=== PATIENT | female | born 1980 | race Caucasian/White ===

== ENCOUNTER 2017-12-07 21:16 | Day surgery (SDC) | payer SELFPAY ==
[2017-12-07] MEDS: MORPHINE 4 MG/ML 1ML VIAL/SYRINGE (J2270) IV (21:45)
[2017-12-07] MEDS: NS 1,000 ML IV (21:45)
[2017-12-07] MEDS: ONDANSETRON 4MG/2ML VIAL (J2405) IV (21:45)
[2017-12-07 22:03] LABS: BASO % 0.3 % (0.0-1.0); EOS # 0.1 10^3/uL (0.0-0.50); EOS % 0.6 % (0.0-3.0); IMMATURE GRANULOCYTE % 0.4 % (0-3.0); LYMPH # 2.4 10^3/uL (1.5-4.5); LYMPH % 19.7 % (24.0-44.0); MEAN CORPUSCULAR HEMOGLOBIN 27.2 pg (27.0-33.0); MEAN CORPUSCULAR HGB CONC 33.3 g/dl (32.0-36.5); MEAN CORPUSCULAR VOLUME 81.6 fl (80.0-96.0); MONO # 0.7 10^3/uL (0.0-0.8); MONO % 5.5 % (0.0-5.0); NEUTROPHILS % 73.5 % (36.0-66.0); PLATELET COUNT, AUTOMATED 252 10^3/uL (150-450); RED BLOOD COUNT 4.41 10^6/uL (4.00-5.40); RED CELL DISTRIBUTION WIDTH 14.6 % (11.5-14.5); WHITE BLOOD COUNT 12.3 10^3/uL (4.0-10.0)
[2017-12-07 22:20] LABS: INR 1.06
[2017-12-07 22:21] LABS: ALBUMIN 3.9 GM/DL (3.2-5.2); ALBUMIN/GLOBULIN RATIO 0.83 (1.00-1.93); ALKALINE PHOSPHATASE 74 U/L (45-117); ALT/SGPT 26 U/L (12-78); AMYLASE 48 U/L (25-115); ANION GAP 13 MEQ/L (8-16); AST/SGOT 16 U/L (7-37); BILIRUBIN,DIRECT < 0.1 MG/DL (0.0-0.2); BILIRUBIN,TOTAL 0.5 MG/DL (0.2-1.0); BLOOD UREA NITROGEN 15 MG/DL (7-18); CALCIUM LEVEL 9.1 MG/DL (8.5-10.1); CARBON DIOXIDE LEVEL 19 MEQ/L (21-32); CHLORIDE LEVEL 107 MEQ/L (98-107); CK-MB VALUE MASS < 1.0 NG/ML (<3.6); CPK CREATINE PHOSPHOKINASE 76 U/L (26-192); CREATININE FOR GFR 0.94 MG/DL (0.55-1.30); GLOMERULAR FILTRATION RATE > 60.0 (>60); GLUCOSE, FASTING 113 MG/DL (70-100); LIPASE 197 U/L (73-393); MB/CK RELATIVE INDEX 1.31 (< OR =4); POTASSIUM SERUM 3.5 MEQ/L (3.5-5.1); SODIUM LEVEL 139 MEQ/L (136-145); TOTAL PROTEIN 8.6 GM/DL (6.4-8.2); TROPONIN I < 0.02 NG/ML (< 0.10)
[2017-12-07 22:22] LABS: LACTIC ACID SEPSIS PROTOCOL 2.2 MMOL/L (0.4-2.0)
[2017-12-07] MEDS: HYDROmorphone HCL 1 MG/ML SYRINGE (J1170) IV (22:30)
[2017-12-07] MEDS: diphenhydrAMINE INJ 50MG/ML VIAL (J1200) IV (22:58)
[2017-12-07] MEDS: FAMOTIDINE IV BAG 20 MG in APPROPRIATE DILUENT 1 EA IV (23:00)
[2017-12-07] MEDS: methylPREDNISolone INJ 125 MG/2 ML VIAL (J2930) IV (23:00)
[2017-12-07] MEDS ORDERED: ISOVUE-370 76% 100ML VIAL (Q9967) As Ordered (23:24)
[2017-12-08] MEDS: MORPHINE 4 MG/ML 1ML VIAL/SYRINGE (J2270) IV (01:44)
[2017-12-08] MEDS: AMPICILLIN SOD/SULBACTAM SOD 3 GM in D5W MINI-BAG PLUS 100 ML IV ×4 (01:45→20:50)
[2017-12-08] MEDS ORDERED: UNASYN 3 GM VIAL As Ordered (01:48)
[2017-12-08] MEDS ORDERED: PROPOFOL 200 MG/20 ML VIAL As Ordered ×2 (01:52→03:23)
[2017-12-08] MEDS ORDERED: LIDOCAINE 2% INJ 100 MG/5 ML SDV (FOR ANES.) As Ordered (01:52)
[2017-12-08] MEDS ORDERED: ROCURONIUM BROMIDE 50 MG/5 ML VIAL As Ordered (01:53)
[2017-12-08] MEDS ORDERED: fentaNYL 100 MCG/2 ML INJECTION (J3010) As Ordered ×2 (01:54→04:06)
[2017-12-08] MEDS ORDERED: MIDAZOLAM INJ 2 MG/2 ML VIAL (J2250) As Ordered (01:54)
[2017-12-08] MEDS: BUPIVACAINE HCL 0.25% 30 ML VIAL As Ordered (01:55)
[2017-12-08 02:24] LABS: CONTROL LINE HCG INT CTR LINE PRESENT; HCG, SERUM QUALITATIVE NEGATIVE (NEGATIVE)
[2017-12-08] MEDS ORDERED: NEOSTIGMINE 10 MG/10 ML VIAL (J2710) As Ordered (02:50)
[2017-12-08] MEDS ORDERED: GLYCOPYRROLATE INJ 0.2 MG/ML 2 ML VIAL As Ordered ×2 (02:51)
[2017-12-08] MEDS ORDERED: ONDANSETRON 4MG/2ML VIAL (J2405) As Ordered (02:51)
[2017-12-08] MEDS ORDERED: METOCLOPRAMIDE INJ 10MG/2ML VIAL (J2765) As Ordered (02:51)
[2017-12-08] MEDS: BUPIVACAINE/EPIN 0.5% 30 ML VIAL As Ordered (03:26)
[2017-12-08] MEDS ORDERED: ONDANSETRON 4MG/2ML VIAL (J2405) IV ×2 (03:45)
[2017-12-08] MEDS ORDERED: METOCLOPRAMIDE INJ 10MG/2ML VIAL (J2765) IV ×2 (03:45)
[2017-12-08] MEDS ORDERED: MORPHINE 4 MG/ML 1ML VIAL/SYRINGE (J2270) IV ×2 (03:45)
[2017-12-08] MEDS: LR 1,000 ML IV (03:45)
[2017-12-08] MEDS ORDERED: HYDROmorphone HCL 1 MG/ML SYRINGE (J1170) IV (03:45)
[2017-12-08] MEDS ORDERED: PROMETHAZINE INJ 25 MG/ML VIAL (J2550) IV (03:45)
[2017-12-08] MEDS ORDERED: PERCOCET 5MG/325MG TAB As Ordered (04:00)
[2017-12-08] MEDS: PERCOCET 5MG/325MG TAB PO ×2 (04:06→04:33)
[2017-12-08] MEDS: fentaNYL 100 MCG/2 ML INJECTION (J3010) IV (04:08)
[2017-12-08] MEDS: NS 1,000 ML IV (05:15)
[2017-12-08] MEDS: ALBUTEROL SULFATE 2.5 MG/0.5 ML INH NEB SOLN INH ×4 (07:20→20:00)
[2017-12-08] MEDS: NORCO, ANEXSIA 5/325MG TABLET (HYDROcodone/ACETAMINOPHEN) PO ×4 (08:23→21:00)
[2017-12-08] MEDS: PANTOPRAZOLE 40MG INJ (PROTONIX) (C9113) IV ×2 (09:01→22:02)
[2017-12-09] MEDS: AMPICILLIN SOD/SULBACTAM SOD 3 GM in D5W MINI-BAG PLUS 100 ML IV ×2 (02:04→09:23)
[2017-12-09] MEDS: NORCO, ANEXSIA 5/325MG TABLET (HYDROcodone/ACETAMINOPHEN) PO ×3 (02:05→10:55)
[2017-12-09] MEDS: ALBUTEROL SULFATE 2.5 MG/0.5 ML INH NEB SOLN INH (07:35)
[2017-12-09] MEDS: PANTOPRAZOLE 40MG INJ (PROTONIX) (C9113) IV (09:22)
== END 2017-12-09 11:02 | disposition home or self-care (01) ==
LOC: M SDC 12-09 11:02 → M ED 21:16 → M PED 12-08 04:45
DX: K35.80 Unspecified acute appendicitis (principal); J45.909 Unspecified asthma, uncomplicated; I10 Essential (primary) hypertension; I80.9 Phlebitis and thrombophlebitis of unspecified site
CPT/HCPCS: 44970

== ENCOUNTER → 2018-11-28 | Outpatient (REF) | payer BC ==
[~2018-11-28] MED LIST: /AUGM875TA; ADVAIR; ALBUTEROL SULFATE; AUGM500T34 PO; CEFT500T; HYDR-3715 PO; IRONTAB3; MULTLIQ7; NASONEX; PRED10TA2; PREDPOW10; PRENTAB74 PO; PROV90AE; SING10TA31; TESS100C; XOPE1.252; XYZASOL2; [UNRECOGNIZED DRUG - OTHER]
[2018-11-30 14:11] LABS: HPV HYBRID CAPTURE II Negative (Negative)
== END ==
LOC: M LAB REF 17:25
PROVIDERS: ATTEND Advanced Practice Midwife
DX: Z12.4 Encounter for screening for malignant neoplasm of cervix (principal); Z11.51 Encounter for screening for human papillomavirus (HPV)
CPT/HCPCS: 87255; 87624; G0123

== ENCOUNTER → 2018-12-19 | Outpatient (CLI) | payer BC ==
[2018-12-19 10:05] LABS: HEMATOCRIT 36.8 % (36.0-47.0); HEMOGLOBIN 11.3 g/dl (12.0-15.5); MEAN CORPUSCULAR HEMOGLOBIN 25.5 pg (27.0-33.0); MEAN CORPUSCULAR HGB CONC 30.7 g/dl (32.0-36.5); MEAN CORPUSCULAR VOLUME 83.1 fl (80.0-96.0); PLATELET COUNT, AUTOMATED 220 10^3/uL (150-450); RED BLOOD COUNT 4.43 10^6/uL (4.00-5.40); WHITE BLOOD COUNT 5.4 10^3/uL (4.0-10.0)
[2018-12-19 10:19] LABS: FREE T4 1.3 NG/DL (0.76-1.46); THYROID STIMULATING HORMONE 1.7 uIU/ML (0.358-3.740)
[2018-12-23 08:06] LABS: DEHYDROEPIANDROSTERONE UNCONJ 176 ng/dL (31-701); INSULIN LEVEL 8.8 uIU/mL (2.6-24.9); TESTOSTERONE FREE (DIRECT) 0.8 pg/mL (0.0-4.2)
== END ==
LOC: M SMT 08:05
PROVIDERS: ATTEND Advanced Practice Midwife
DX: N92.6 Irregular menstruation, unspecified (principal)

== ENCOUNTER → 2018-12-19 | Outpatient (CLI) | payer BC ==
--- NOTE | 2018-12-20 04:04 | REP ---
Clinical: Abnormal menstrual cycles . Technique: Transabdominal pelvic ultrasound followed by transvaginal examination for better evaluation of the endometrium and adnexa with color Doppler evaluation of the ovaries. Findings: Bladder is unremarkable and measures 14.3 x 9.2 x 9.4 cm . Anteverted heterogeneous uterus measures 10.3 x 5.3 x 6.9 cm . The endometrial complex measures 13.4 mm thickness and includes 1.5 x 1.1 x 1.1 cm posterior hypoechoic lesion which may represent polyp/mass versus submucosal fibroid. Right ovary measures 4.1 x 4.3 x 3.5 cm with 3.1 x 2.6 x 2.7 cm complex cyst ; Left ovary measures 3.7 x 2.3 x 2.6 cm including 2 cm dominant follicle. The vascularity to the bilateral ovaries appears normal and without torsion. Right RI 0.52. Left RI 0.55 . Impression: 1. Heterogeneous enlarged uterus with possible posterior submucosal fibroid versus endometrial polyp/mass. Consider follow-up examination. 2. Complex right ovarian cyst likely hemorrhagic. Consider follow-up examination in 4-6 weeks to evaluate for resolution. Electronically Signed by Gerardo Stack MD 12/20/2018 03:55 A
== END ==
LOC: M RAD 13:33
PROVIDERS: ATTEND Advanced Practice Midwife
DX: N85.2 Hypertrophy of uterus (principal); N83.291 Other ovarian cyst, right side; N92.6 Irregular menstruation, unspecified

== ENCOUNTER 2019-03-22 08:54 | Day surgery (SDC) | payer BC ==
[~2019-03-22] VITALS: Ht 162.6 cm; Wt 89.4 kg
[~2019-03-22 08:54] MED LIST changes: +ALLE180T33 PO; +BENA25CA4 PO; +KETOROLAC 60 MG/2 ML VIAL (J1885) As Ordered ONE; +LIDOCAINE 2% INJ 100 MG/5 ML SDV (FOR ANES.) As Ordered ONE; +LR 1,000 ML IV ONE; +MIDAZOLAM INJ 2 MG/2 ML VIAL (J2250) As Ordered ONE; +ONDANSETRON 4MG/2ML VIAL (J2405) As Ordered ONE; +PROPOFOL 200 MG/20 ML VIAL As Ordered ONE; +dexameTHASONE 4 MG/ML 1ML VIAL (J1100) As Ordered ONE; +fentaNYL 100 MCG/2 ML INJECTION (J3010) As Ordered ONE
[2019-03-22 09:19] LABS: HEMOGLOBIN 11.6 g/dl (12.0-15.5); MEAN CORPUSCULAR HEMOGLOBIN 26.5 pg (27.0-33.0); MEAN CORPUSCULAR HGB CONC 31.4 g/dl (32.0-36.5); MEAN CORPUSCULAR VOLUME 84.7 fl (80.0-96.0); PLATELET COUNT, AUTOMATED 252 10^3/uL (150-450); RED BLOOD COUNT 4.37 10^6/uL (4.00-5.40); WHITE BLOOD COUNT 6.6 10^3/uL (4.0-10.0)
[2019-03-22 09:28] LABS: URINE PREG TEST NEGATIVE (NEGATIVE)
[2019-03-22] MEDS ORDERED: oxyCODONE 5MG TAB As Ordered ONE (10:43)
[2019-03-22] MEDS ORDERED: HYDROMORPHONE HCL 0.5 MG/ 0.5 ML SYRINGE (J1170 PER 1) IV PRN (11:00)
[2019-03-22] MEDS ORDERED: LR 1,000 ML IV SCH (11:00)
[2019-03-22] MEDS ORDERED: fentaNYL 100 MCG/2 ML INJECTION (J3010) IV PRN (11:00)
[2019-03-22] MEDS ORDERED: oxyCODONE 5MG TAB PO PRN (11:00)
[2019-03-22] MEDS ORDERED: PERCOCET 5MG/325MG TAB PO PRN (11:00)
--- NOTE | 2019-03-22 11:43 | RO ---
DATE OF PROCEDURE: 03/22/2019 PREOPERATIVE DIAGNOSES: 1. Abnormal uterine bleeding. 2. Endometrial polyp. POSTOPERATIVE DIAGNOSES: 1. Abnormal uterine bleeding. 2. Endometrial polyp. PROCEDURE PERFORMED: Hysteroscopy, dilation and curettage with MyoSure. SURGEON: Alison Zepeda MD .NET PROGRAMMER: None. ANESTHESIA: General: ESTIMATED BLOOD LOSS: 5ml IV FLUIDS: 1 liter lactated Ringer's solution. URINE OUTPUT: Not obtained. PREOPERATIVE ANTIBIOTICS: None. OPERATIVE FINDINGS: Patient with thickened endometrium approximately a centimeter thickened portion of the posterior endometrium consistent with endometrial polyp bilateral ostia were visualized. DESCRIPTION OF PROCEDURE: After informed consent was obtained written consent was reviewed, the patient brought to operating room where she was placed under general anesthesia. She was then placed in lithotomy position and was prepped and draped in normal sterile fashion. Time-out in the operating room was then performed identifying the patient, procedure be performed as well as drug allergies. [place] speculum was placed revealing the cervix. Anterior lip of the cervix grasped with a single-tooth tenaculum. The uterus then sounded to 9 cm. The cervix then sequentially dilated using Hanks dilators. Hysteroscope was then advanced through the cervical os and endometrial cavity was observed with the above-noted findings. MyoSure device was then placed in the hysteroscope and endometrial polyp was morcellated. Hysteroscope was then removed as well as the MyoSure. Sharp curette was then advanced through the cervical os to the level of the fundus and the uterus curetted in a 260 degree fashion. Tissue was obtained and this was sent to pathology for evaluation. The single-tooth tenaculum was then removed. Tenaculum sites were noted be hemostatic. The speculum was then removed. The patient was then taken out of lithotomy position, was awakened from general anesthesia and taken recovery in stable condition. [facility]ITALFab[facility]
[2019-03-22 13:10] VITALS: BP 137/63
== END 2019-03-22 13:17 | disposition home or self-care (01) ==
LOC: M SDC 08:54
PROVIDERS: ATTEND Obstetrics & Gynecology
DX: N84.0 Polyp of corpus uteri (principal); Z79.899 Other long term (current) drug therapy; Z88.1 Allergy status to other antibiotic agents; Z88.2 Allergy status to sulfonamides; Z91.041 Radiographic dye allergy status
CPT/HCPCS: 36415; 58558; 84703; 85027; 86850; 86900; 86901; 88304; 88305; J1100; J1885; J2250; J2405; J3010

== ENCOUNTER 2019-04-03 17:22 | Emergency (ER) | payer BC ==
[~2019-04-03] VITALS: Ht 162.6 cm; Wt 90.9 kg
[~2019-04-03 17:22] MED LIST changes: -KETOROLAC 60 MG/2 ML VIAL (J1885) As Ordered ONE; -LIDOCAINE 2% INJ 100 MG/5 ML SDV (FOR ANES.) As Ordered ONE; -LR 1,000 ML IV ONE; -MIDAZOLAM INJ 2 MG/2 ML VIAL (J2250) As Ordered ONE; -ONDANSETRON 4MG/2ML VIAL (J2405) As Ordered ONE; -PROPOFOL 200 MG/20 ML VIAL As Ordered ONE; -dexameTHASONE 4 MG/ML 1ML VIAL (J1100) As Ordered ONE; -fentaNYL 100 MCG/2 ML INJECTION (J3010) As Ordered ONE
[2019-04-03 18:56] LABS: BASO # 0.1 10^3/uL (0.0-0.2); BASO % 0.6 % (0.0-1.0); EOS # 0.2 10^3/uL (0.0-0.50); EOS % 1.8 % (0.0-3.0); HEMATOCRIT 36.4 % (36.0-47.0); HEMOGLOBIN 11.4 g/dl (12.0-15.5); LYMPH # 2.4 10^3/uL (1.5-4.5); LYMPH % 26.7 % (24.0-44.0); MEAN CORPUSCULAR HEMOGLOBIN 26.5 pg (27.0-33.0); MEAN CORPUSCULAR HGB CONC 31.3 g/dl (32.0-36.5); MEAN CORPUSCULAR VOLUME 84.5 fl (80.0-96.0); MONO # 0.5 10^3/uL (0.0-0.8); MONO % 5.9 % (0.0-5.0); NEUTROPHILS # 5.8 10^3/uL (1.8-7.7); NEUTROPHILS % 64.7 % (36.0-66.0); PLATELET COUNT, AUTOMATED 257 10^3/uL (150-450); RED BLOOD COUNT 4.31 10^6/uL (4.00-5.40)
[2019-04-03 19:19] LABS: ALBUMIN 3.6 GM/DL (3.2-5.2); ALT/SGPT 26 U/L (12-78); BILIRUBIN,DIRECT < 0.1 MG/DL (0.0-0.2); BILIRUBIN,TOTAL 0.1 MG/DL (0.2-1.0); BLOOD UREA NITROGEN 20 MG/DL (7-18); CALCIUM LEVEL 8.8 MG/DL (8.5-10.1); CARBON DIOXIDE LEVEL 29 MEQ/L (21-32); CHLORIDE LEVEL 105 MEQ/L (98-107); CREATININE FOR GFR 0.83 MG/DL (0.55-1.30); GLOMERULAR FILTRATION RATE > 60.0 (>60); GLUCOSE, FASTING 97 MG/DL (70-100); LIPASE 253 U/L (73-393); POTASSIUM SERUM 3.7 MEQ/L (3.5-5.1); SODIUM LEVEL 141 MEQ/L (136-145); TOTAL PROTEIN 7.1 GM/DL (6.4-8.2)
[2019-04-03] MEDS ORDERED: MORPHINE 4 MG/ML 1ML VIAL/SYRINGE (J2270) IV ONE (21:30)
[2019-04-03] MEDS ORDERED: ONDANSETRON 4MG/2ML VIAL (J2405) IV ONE (21:30)
--- NOTE | 2019-04-03 23:40 | REPVR ---
EXAM: US Pelvis Complete, Transabdominal EXAM DATE/TIME: 04/03/2019 10:34 PM CLINICAL HISTORY: 39 years old, female; Pelvic pain; Prior surgery; Surgery date: 3-7 days post-operative; Surgery type: Hysteroscpopy and polyp removal; Additional info: Left inguinal pain, recent uterine polyp removal TECHNIQUE: Imaging protocol: Real-time transabdominal pelvic ultrasound with image documentation. Complete exam. COMPARISON: US PELVIC NON-OB COMPLETE 12/19/2018 2:12 PM FINDINGS: Uterus/cervix: 12.1 x 5.8 x 6.8 cm. Normal endometrial thickness, measuring approximately 11 mm. Right ovary: 4.1 x 3 x 4 cm. No mass. Normal blood flow. Left ovary: 4.1 x 3.2 x 3.6 cm. 2.2 x 2 x 2 cm dominant follicle. No mass. Normal blood flow. Free fluid: None. Bladder: Normal. IMPRESSION: No acute sonographic findings. Electronically signed by: Saman Moreno On 04/03/2019 23:40:36 PM
--- NOTE | 2019-04-03 23:47 | REPVR ---
EXAM: CT Abdomen and Pelvis Without Contrast EXAM DATE/TIME: 04/03/2019 11:16 PM CLINICAL HISTORY: 39 years old, female; Abdominal pain; Flank; Left; Additional info: Llq pain, left flank pain TECHNIQUE: Imaging protocol: Computed tomography images of the abdomen and pelvis without contrast. Coronal and sagittal reformatted images were created and reviewed. Radiation optimization: All CT scans at this facility use at least one of these dose optimization techniques: automated exposure control; mA and/or kV adjustment per patient size (includes targeted exams where dose is matched to clinical indication); or iterative reconstruction. COMPARISON: CT ABD/PEL W/IV CONTRAST ONLY 12/07/2017 11:26 PM FINDINGS: Mediastinum: Small hiatal hernia. Liver: Unremarkable. Gallbladder and bile ducts: No radiodense gallstones. No biliary ductal dilatation. Pancreas: Unremarkable. Spleen: Unremarkable. Adrenals: Unremarkable. Kidneys and ureters: No mass. No radiodense calculi. No hydronephrosis. Stomach and bowel: Status post gastric sleeve. Moderate amount of retained stool in the colon. No obstruction. No bowel wall thickening. No pneumatosis. Appendix: Findings suggestive of prior appendectomy. Intraperitoneal space: No free fluid. No organized fluid collection. No free air. Vasculature: Unremarkable. No aneurysm. Lymph nodes: No pathologically enlarged lymph nodes. Bladder: Unremarkable. Reproductive: Unremarkable. Bones/joints: No acute osseous abnormality. Mild degenerative changes. Soft tissues: Small, fat-containing umbilical hernia. IMPRESSION: 1. Limited noncontrast examination without CT evidence of acute intra-abdominal or pelvic pathology. 2. Additional findings, as above. Electronically signed by: Saman Moreno On 04/03/2019 23:47:45 PM
[2019-04-04] MEDS ORDERED: MAGNESIUM CITRATE 300 ML BTL PO ONE (00:30)
[2019-04-04 00:35] VITALS: BP 127/75
== END 2019-04-04 00:42 | disposition home or self-care (01) ==
LOC: M ED 17:22
DX: R10.9 Unspecified abdominal pain (principal); K59.00 Constipation, unspecified; J45.909 Unspecified asthma, uncomplicated; Z79.899 Other long term (current) drug therapy; Z91.041 Radiographic dye allergy status; Z88.6 Allergy status to analgesic agent; Z91.89 Other specified personal risk factors, not elsewhere classified; Z88.8 Allergy status to other drugs, medicaments and biological substances; Z88.1 Allergy status to other antibiotic agents
CPT/HCPCS: 36415; 74176; 76856; 80048; 80076; 81001; 83690; 84702; 85025; 93976; 96374; 96375; 99284; J2270; J2405

== ENCOUNTER → 2019-07-24 | Outpatient (REF) | payer BC, OTHER ==
[2019-07-24 19:41] LABS: TOTAL 25(OH) VITAMIN D 18.6 NG/ML (30.0-100.0)
[2019-07-24 19:43] LABS: FOLATE 8.9 NG/ML
== END ==
LOC: M LAB REF 18:30
PROVIDERS: ATTEND Internal Medicine
DX: Z98.84 Bariatric surgery status (principal)

== ENCOUNTER → 2019-11-20 | Outpatient (REF) | payer OTHER ==
[2019-11-20 11:05] LABS: HEMATOCRIT 36.4 % (36.0-47.0); HEMOGLOBIN 11.7 g/dl (12.0-15.5); MEAN CORPUSCULAR HEMOGLOBIN 28.5 pg (27.0-33.0); MEAN CORPUSCULAR HGB CONC 32.1 g/dl (32.0-36.5); MEAN CORPUSCULAR VOLUME 88.6 fl (80.0-96.0); PLATELET COUNT, AUTOMATED 212 10^3/uL (150-450); RED BLOOD COUNT 4.11 10^6/uL (4.00-5.40); WHITE BLOOD COUNT 7.9 10^3/uL (4.0-10.0)
[2019-11-20 11:31] LABS: IRON (FE) 83 UG/DL (50-170)
[2019-11-20 11:41] LABS: TOTAL 25(OH) VITAMIN D 22.2 NG/ML (30.0-100.0)
[2019-11-20 11:42] LABS: VITAMIN B12 LEVEL 427 PG/ML (247-911)
[2019-11-20 11:44] LABS: HEMOGLOBIN A1c 5.2 %
[2019-11-20 11:51] LABS: RUBELLA IgG QUALITATIVE IMMUNE (IMMUNE)
[2019-11-20 11:52] LABS: FOLATE 23.3 NG/ML (>5.4); HEPATITIS B SURFACE ANTIGEN NEGATIVE (NEGATIVE)
[2019-11-20 12:20] LABS: HEPATITIS C VIRUS ABY INDEX 0.1 INDEX (<0.8)
[2019-11-20 12:21] LABS: HIV 1&2 SCREEN CENTAUR NEGATIVE (NEGATIVE)
[2019-11-20 19:10] LABS: CHLAMYDIA DNA AMPLIFICATION NEGATIVE (NEGATIVE); GC DNA AMPLIFICATION NEGATIVE (NEGATIVE)
== END ==
LOC: M PLALAB 08:43
PROVIDERS: ATTEND Advanced Practice Midwife
DX: O09.521 Supervision of elderly multigravida, first trimester (principal); O99.841 Bariatric surgery status complicating pregnancy, first trimester; Z3A.11 11 weeks gestation of pregnancy

== ENCOUNTER → 2020-01-15 | Outpatient (CLI) | payer OTHER ==
--- NOTE | 2020-01-18 08:26 | REP ---
Clinical: Anatomical evaluation. Comparison: None . Findings: Examination demonstrates a single live intrauterine in variable presentation. motion is identified by technologist. Placenta is noted posterior fundal and grade I without evidence for placenta previa or abruption. Amniotic fluid volume is normal. Cervix measures 4.9 cm in length and appears closed. No evidence for nuchal cord. Gestational age by LMP 18 weeks 1 day with YADIRA 06/16/2020 . Gestational age by current measurements 17 weeks 4 days with YADIRA 06/20/2020 . FHR equals 161 beats per minute. BPD 3.7 cm 17 weeks 1 day HC 14.4 cm 17 weeks 4 days AC 12.1 cm 17 weeks 5 days FL 2.5 cm 17 week 4 days HL 2.5 cm 17 weeks 6 days HC/AC ratio 1.19 Estimated weight 202 grams ( 29th percentile). Anatomical assessment demonstrates normal structures including cranium, choroid plexus, cavum, cerebellum/posterior fossa, lungs, diaphragm, stomach, cord insertion/three-vessel cord, kidneys/bladder, spine, and extremities. Impression: Single live intrauterine in variable presentation demonstrating appropriate estimated weight. Limited evaluation of the facial features and heart/ventricular outflow tracts due to positioning and body habitus. Remainder of the anatomical assessment is complete and normal.
== END ==
LOC: M WHC 12:53
PROVIDERS: ATTEND Advanced Practice Midwife
DX: O32.8XX0 Maternal care for other malpresentation of fetus, not applicable or unspecified (principal); Z36.89 Encounter for other specified antenatal screening; Z3A.18 18 weeks gestation of pregnancy

== ENCOUNTER → 2020-02-15 | Outpatient (CLI) | payer OTHER ==
[~2020-02-15] MED LIST changes: +ACET1TAB55 PO; +IRON325T2 PO; +PERCOCET PO; +PRENTAB9 PO; +TUMS500C PO; +VITATAB74 PO; +[UNRECOGNIZED DRUG - OTHER] PO
--- NOTE | 2020-02-16 03:00 | REP ---
REASON: Followup upper lip, four-chamber heart, and ventricular outflow tracts. Multiple ultrasonographic images of the gravid uterus show a single living intrauterine gestation in the maria m breech presentation. Doppler interrogation of the heart shows a heart rate of 135 beats per minute. The placenta is fundal and not low lying. The subjective amniotic fluid volume is within normal limits. The cervix measures 4.3 cm in length and is closed. Evaluation of the maternal adnexal spaces showed no abnormalities. CHART: BPD 5.2 cm = 21 weeks 6 days HC 19.8 cm = 22 weeks 0 days AC 17.6 cm = 22 weeks 4 days FL 3.8 cm = 22 weeks 1 day The estimated weight is 490 grams, which is at the 37th percentile for a 22-week 4-day gestational age. The upper lip, four-chamber heart, and left ventricular outflow tract were well seen today and appear to be within normal limits. The right ventricular outflow tract was still suboptimally seen. IMPRESSION: Single living intrauterine gestation, as described above, with an estimated gestational age of 21 weeks 6 days via composite criteria and an estimated date of delivery of 06/21/2020 by today's exam. No anomalies were detected; however, I recommend a followup examination to confirm a normal right ventricular outflow tract.
== END ==
LOC: M WHC 14:26
PROVIDERS: ATTEND Advanced Practice Midwife
DX: O99.842 Bariatric surgery status complicating pregnancy, second trimester (principal); Z3A.21 21 weeks gestation of pregnancy

== ENCOUNTER → 2020-05-13 | Outpatient (CLI) | payer OTHER ==
[~2020-05-13] MED LIST changes: -ACET1TAB55 PO; -IRON325T2 PO; -PERCOCET PO; -PRENTAB9 PO; -TUMS500C PO; -VITATAB74 PO; -[UNRECOGNIZED DRUG - OTHER] PO
--- NOTE | 2020-05-20 14:32 | REP ---
OB ULTRASOUND HISTORY: Growth. FINDINGS: Real-time sonographic evaluation of gravid uterus performed. There is a single living intrauterine gestation. The estimated gestational age was 35 weeks 1 day, EDC 06/16/2020. Todays measurements indicate appropriate growth. BPD 86 mm equals 34 weeks 5 days, 45th percentile. HC 317 mm, 35 weeks 5 days, 59th percentile. AC 311 mm, 35 weeks 0 days, 49th percentile. Femur length 69 mm, 35 weeks 4 days, 57th percentile. HC to AC ratio 1.02, within normal range, 0.93 to 1.12. Estimated weight 2621 grams, 51st percentile. position is cephalic. Placenta is fundal and grade 2 with no previa or abruption. Umbilical cord inserts into the mid placenta. The heart rate is 143 beats per minute. The amniotic fluid is within normal limits. DEVIN 13.9 is within normal range of 7.9 to 24.9. Cervix was closed and measures 3.0 cm in length. MTDD
== END ==
LOC: M WHC 11:00
PROVIDERS: ATTEND Advanced Practice Midwife
DX: O99.613 Diseases of the digestive system complicating pregnancy, third trimester (principal); K90.9 Intestinal malabsorption, unspecified; Z3A.34 34 weeks gestation of pregnancy

== ENCOUNTER → 2020-05-24 | Outpatient (REF) | payer OTHER | LOC: M SFHCWAGY 13:02 | PROVIDERS: ATTEND Advanced Practice Midwife | DX: O34.219 Maternal care for unspecified type scar from previous cesarean delivery (principal) ==

== ENCOUNTER 2020-06-02 03:10 | Outpatient (CLI) | payer OTHER ==
[~2020-06-02] VITALS: Ht 162.6 cm; Wt 104.8 kg
--- NOTE | 2020-06-02 09:36 | IPNPDOC ---
Obstetrical Progress Note Date of Service Jun 02, 2020 Subjective Pt presents for term labor check. No LOF/VB. +FM. PN course complicated by: h/o gastric sleeve AMA Assessment Heart Rate Tracing: Category I (Reactive.) Tocometer Frequency: irregular Strength: palpated as mild Sterile Vaginal Examination Dilation: 1cm Effacement (%): 50% Station: -3 ((unchanged after several hours of monitoring)) Cervical Consistency: Firm Cervical Position: Posterior Postion/Presentation: Cephalic presentation Assessment and Plan Age: 40 : 3 Term: 2 Pre-term: 0 Abortions: 0 Livin Weeks & Days 38+0 Status: Reassuring (No evidence of active labor or ROM. Reassuring maternal and status. Labor / Third TM precautions reviewed. F/u as scheduled.) SYDNEY DIOR DO Jun 02, 2020 09:36
== END 2020-06-02 09:38 | disposition home or self-care (01) ==
LOC: M LDO 03:10
PROVIDERS: ATTEND Obstetrics & Gynecology
DX: O26.893 Other specified pregnancy related conditions, third trimester (principal); Z3A.38 38 weeks gestation of pregnancy

== ENCOUNTER 2020-06-15 07:40 | Inpatient (IN) | payer OTHER ==
[2020-06-15] VITALS (32 sets, daily range): BP systolic 108–205; BP diastolic 56–131
[~2020-06-15] VITALS: Ht 162.6 cm; Wt 103.9 kg
[2020-06-15] MEDS ORDERED: ACET1TAB55 PO (08:08)
[2020-06-15] MEDS ORDERED: PRENTAB9 PO (08:08)
[2020-06-15] MEDS ORDERED: IRON325T2 PO (08:11)
[2020-06-15] MEDS ORDERED: TUMS500C PO (08:11)
[2020-06-15] MEDS ORDERED: [UNRECOGNIZED DRUG - OTHER] PO (08:11)
[2020-06-15] MEDS ORDERED: VITATAB74 PO (08:11)
[2020-06-15] MEDS ORDERED: OXYTOCIN DRIP 30 UNITS in IV 1 EA IV SCH ×2 (10:15→17:00)
[2020-06-15] MEDS: LR 1,000 ML IV SCH ×2 (10:20→14:18)
[2020-06-15 10:31] LABS: HEMATOCRIT 33.3 % (36.0-47.0); HEMOGLOBIN 10.4 g/dl (12.0-15.5); MEAN CORPUSCULAR HEMOGLOBIN 27.7 pg (27.0-33.0); MEAN CORPUSCULAR HGB CONC 31.2 g/dl (32.0-36.5); MEAN CORPUSCULAR VOLUME 88.6 fl (80.0-96.0); PLATELET COUNT, AUTOMATED 207 10^3/uL (150-450); RED BLOOD COUNT 3.76 10^6/uL (4.00-5.40)
[2020-06-15 10:52] LABS: ALT/SGPT 11 U/L (12-78); BILIRUBIN,TOTAL 0.2 MG/DL (0.2-1.0); GLOMERULAR FILTRATION RATE > 60.0 (>60); LDH LACTATE DEHYDROGENASE 172 U/L (84-246); URIC ACID 3.6 MG/DL (2.6-6.0)
--- NOTE | 2020-06-15 11:35 | HPEPDOC ---
Obstetrical History & Physical General Date of Admission Jun 15, 2020 at 09:21 History of Present Illness 40-year-old 3 para 2 who presents at 39 weeks 6 days estimated gestational age with complaints of leakage of clear fluid that occurred approximately 2:30 AM. She has irregular contractions denies any vaginal bleeding. Reports active movement Chief Complaint: Rupture of membranes Information Provided By: Patient Age: 40 : 3 Livin Care Care: Good Care Dating Final EDC: Jun 16, 2020 Final EDC by: LMP LMP: Sep 10, 2019 EGA at Admission: 40 Past Medical History Past Obstetrical History #1: Past Obstetrical History: Primgravida Date of Delivery: December 29, 2010 Type of Delivery: Spontaneous Vaginal Del. Sex of : Female Complications: No Past Obstetrical History #2: Past Obstetrical History: Multigravida Type of Delivery: Spontaneous Vaginal Del. 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 Past Medical History Surgical History: Appendectomy, Dilatation and Curettage, Other (gastric sleeve, tympanostomy, sinus surgery x 3 and carpal tunnel right and left hand) Family History Significant Family History: No pertinent family hx Social History Marital Status: Psychosocial History: No pertinent psych hx * Smoker: non-smoker Alcohol: Denies Drugs: denies Allergies Coded Allergies: Contrast Media (Verified Allergy, Severe, DIFFICULTING BREATHING & HIVES, 05/21/09) NSAIDS (Non-Steroidal Anti-Inflamma (Verified Allergy, Severe, difficulty breathing & hives, 03/08/19) aspirin (Verified Allergy, Severe, difficulty breathing and hives, 03/08/19) levofloxacin (Verified Allergy, Severe, swelling, hives, 03/08/19) sulfite (Verified Allergy, Severe, difficulty breathing & hives, 03/08/19) erythromycin base (Verified Allergy, Intermediate, hives, 03/08/19) Quinolones (Verified Allergy, Unknown, 03/08/19) TAPE (Verified Allergy, Unknown, BAND-AIDS, 12/08/17) Medications Scheduled Ferrous Sulfate (Iron) 325 Mg Tablet, 1 TAB PO DAILY Methylcellulose (Fiber) 500 Mg Tablet, 500 MG PO DAILY No.137/Iron/Folic Acd ( Vitamin Tablet) 1 Each Tablet, 1 TAB PO DAILY Scheduled PRN Acetaminophen (Acetaminophen) 325 Mg Tablet, 650 MG PO PRN PRN for PAIN Calcium Carbonate (Tums) 200 Mg Tab.chew, 500 MG PO PRN PRN for INDIGESTION Miscellaneous Medications Mv-Mn/Iron/Folic Acid/Herb 190 (Vitamin D3 Complete Caplet) 1 Each Tablet, 1 TAB PO Physical Examination Physical Examination GENERAL: Alert and oriented times three. BREAST: . ABDOMEN: Gravid and non-tender to touch. FETUS: Is vertex (VTX) by sterile vaginal examination (SVE), fetus is vertex (VTX) by Jorge Luis. HEART RATE: Regular rate and rhythm. LUNGS: Clear to auscultation (CTA). Vital Signs/I&O Vital Signs Date Time Temp Pulse Resp B/P (MAP) Pulse Ox O2 Delivery O2 Flow Rate FiO2 06/15/20 09:17 86 18 129/67 (87) 06/15/20 08:00 99.8 Laboratory Data 24H LABS Laboratory Tests 2 06/15/20 09:31: Serology Scanned Report Hepatitis B Testing Pertinent Laboratoy Data Blood Type: A+ RBC Antibody Screen: Negative HIV: Negative Hepatitis B: Negative Hepatitis C: Negative Rapid Plasma Reagin: Nonreactive Rubella: Immune Chlamydia/Gonorrhea: Negative Group B Streptococcus: Negative Anatomy Ultrasound Ultrasound Date: Jan 15, 2020 Placenta Location: Posterior Normal Anatomy: Yes Vaginal Examination Dilation: 2cm Effacement: 70% Station: -2 Cervical Consistency: Soft Cervical Position: Middle Presentation: Cephalic presentation Assessment Variability: Moderate Accelerations: Positive Tocometer Frequency: irregular Assessment/Plan Assessment 40-year-old 3 para 2 at 39 and 6 with premature rupture of membranes. Reassuring status Patient and thoroughly counseled in regards to her diagnosis. I discussed augmentation of labor using Pitocin. She has been verbally consented for emerg ency surgery blood products anesthesia and desires to proceed with admission Plan Admit and orient. Automation Tester and consent. Group B Streptococcus (GBS) negative. Labs and intravenous (IV) per unit protocol. Counseled on Pitocin and induction of labor (IOL). Anticipate normal spontaneous delivery (). C-S as appropriate. HARJEET PATTERSON MD. Jun 15, 2020 11:35
[2020-06-15] MEDS ORDERED: FENTANYL 2MCG/ML ROPIVACAINE 0.2% IN 0.9% NACL 100ML IVBAG As Ordered ONE (12:46)
[2020-06-15] MEDS ORDERED: EPIDURAL COMMENT XX SCH (14:00)
[2020-06-15] MEDS ORDERED: FENTANYL/ROPIVACAINE/NACL BAG 100 ML EPIDURAL SCH (14:00)
[2020-06-15] MEDS ORDERED: ONDANSETRON 4MG/2ML VIAL IV PRN ×4 (14:00→18:00)
[2020-06-15] MEDS ORDERED: REFRIGERATOR IV KEYS XX PRN (14:00)
[2020-06-15] MEDS ORDERED: EPIDURAL/PCA KEYS XX PRN (14:00)
[2020-06-15] MEDS ORDERED: ePHEDrine SULFATE 25 MG/5 ML(5MG/ML) SYRINGE IV PRN (14:00)
[2020-06-15] MEDS ORDERED: NALOXONE INJ 0.4MG/1ML VIAL (J2310 PER 1MG) IV PRN ×3 (14:00→16:45)
[2020-06-15] MEDS ORDERED: LACTATED RINGER'S 1000 ML IV PRN (14:00)
[2020-06-15] MEDS ORDERED: diphenhydrAMINE 50MG/ML VIAL (J1200) IV PRN ×2 (14:00→16:45)
--- NOTE | 2020-06-15 15:48 | IPNPDOC ---
Obstetrical Progress Note Date of Service Jun 15, 2020 Subjective Comfortable after epidural Objective Vital Signs Date Time Temp Pulse Resp B/P (MAP) Pulse Ox O2 Delivery O2 Flow Rate FiO2 06/15/20 14:19 98.2 06/15/20 14:16 75 18 125/60 (81) Assessment Variability: Moderate Decelerations: Variable Heart Rate Tracing: Category II Tocometer Contractions: Yes Frequency: regular Sterile Vaginal Examination Dilation: 3 cm Effacement (%): 70% Station: -2 Postion/Presentation: Cephalic presentation Assessment and Plan Age: 40 : 3 Group B Streptococcus: Negative HARJEET PATTERSON MD. Jun 15, 2020 15:48
[2020-06-15] MEDS ORDERED: ceFAZolin 2 GM/D5W 50 ML IV BAG (J0690 PER 500MG) As Ordered ONE (16:22)
[2020-06-15] MEDS ORDERED: BICITRA 30ML SOLN UDC As Ordered ONE (16:22)
[2020-06-15] MEDS ORDERED: MORPHINE PRES-FREE INJ 10 MG/10 ML VIAL (J2274) As Ordered ONE (16:34)
--- NOTE | 2020-06-15 16:35 | IPNPDOC ---
Obstetrical Progress Note Date of Service Jun 15, 2020 Subjective 40yo with persistent cat II tracing with recurrent decelerations and now tachycardia despite concentrative measures with d/ pitocin, position change, 02 and FSH placed. Patient is unchanged since admission this morning . I reviewed these concerns with couple, I have decided to proceed with 1LTCS for persistent cat II tracing remote from delivery Objective Vital Signs Date Time Temp Pulse Resp B/P (MAP) Pulse Ox O2 Delivery O2 Flow Rate FiO2 06/15/20 14:19 98.2 06/15/20 14:16 75 18 125/60 (81) Assessment Decelerations: Late, Variable Heart Rate Tracing: Category II Tocometer Contractions: Yes Frequency: regular Sterile Vaginal Examination Dilation: 3 cm Effacement (%): 70% Station: -3 Assessment and Plan Age: 40 : 3 Livin Status: Non-reassuring Anticipate: Section HARJEET PATTERSON MD. Jun 15, 2020 16:35
[2020-06-15] MEDS ORDERED: OXYTOCIN INJ 10 UNITS/ML VIAL (J2590) As Ordered ONE (16:36)
[2020-06-15] MEDS ORDERED: ONDANSETRON 4MG/2ML VIAL As Ordered ONE (16:41)
[2020-06-15] MEDS ORDERED: KETOROLAC 60MG 2ML VIAL As Ordered ONE (16:41)
[2020-06-15] MEDS ORDERED: MOM 30ML SUSPENSION UDC PO PRN (16:45)
[2020-06-15] MEDS ORDERED: MEASLES,MUMPS,RUBELLA VACCINE INJ (MMR-II) (90707) SC SCH (16:45)
[2020-06-15] MEDS ORDERED: METOCLOPRAMIDE INJ 10MG/2ML VIAL (J2765 PER 1) IV PRN ×2 (16:45→18:00)
[2020-06-15] MEDS ORDERED: RHOGAM 300 MCG (1500 IU) INJ (J2790) IM SCH (16:45)
[2020-06-15] MEDS ORDERED: NALBUPHINE HCL 10 MG/ML AMP (J2300) IV PRN (16:45)
[2020-06-15 17:41] LABS: CORD GAS ABE V -0.3; CORD GAS HCO3 A 23.1 MEQ/L; CORD GAS HCO3 V 23.4 MEQ/L; CORD GAS O2 SAT A 37.6 %; CORD GAS PCO2 A 40.9 mmHg; CORD GAS PCO2 V 35.5 mmHg; CORD GAS PH A 7.37 UNITS; CORD GAS PH V 7.437 UNITS; CORD GAS PO2 A 18.4 mmHg; CORD GAS PO2 V 20.2 mmHg; CORD GAS SBC A 21.4 MEQ/L; CORD GAS SBC V 23.1 MEQ/L; CORD GAS TCO2 A 24.4 MEQ/L; CORD GAS TCO2 V 24.5 MEQ/L
--- NOTE | 2020-06-15 17:46 | ROOPDOC ---
[facility] Report Of Operation Report of Operation DATE OF PROCEDURE: 06/15/20 SURGEON: Alison Zepeda M.D. FORGE UTILITY WORKER: Anjel Partida M.D. ( essential for the emergency of surgery for tissue retractions, exposure and delivery of ) PROCEDURE: Primary section PREOPERATIVE DIAGNOSIS: 1. Persistent category 2 heart tracing remote from delivery POSTOPERATIVE DIAGNOSIS: 1. Persistent category 2 heart rate tracing remote from delivery ANESTHESIA: Spinal ESTIMATED BLOOD LOSS: 500 mL URINE OUTPUT: 150 mL INTRAVENOUS FLUIDS:1000 mL of lactated Ringer's solution PREOPERATIVE ANTIBIOTICS:. 2 g of Ancef OPERATIVE FINDINGS: Liveborn male , Apgars 9 and 9. Weight 3570gm, 7lbs 14oz SPECIMENS: None DESCRIPTION OF PROCEDURE: After informed consent was obtained and written consent was reviewed. The patient was brought to the operating room where spinal anesthesia was placed. She was then placed in the supine position with a left lateral tilt. Willis catheter was placed and to gravity. Patient was then prepped and draped in the normal sterile fashion. A timeout operating room was performed identifying the patient, procedure be performed as well as drug allergies. Anesthesia was tested and deemed to be adequate. Pfannenstiel skin incision was made and this was carried down to the underlying rectus fascia. The fascia was then scored and this incision was extended bilaterally. The fascia was then dissected off the underlying rectus muscle superiorly and inferiorly. The rectus muscles were then in the midline. The peritoneum is then entered. Vesicouterine peritoneum was then tented and excised and a bladder flap was created. Mobius retractor was then placed. Next, a curvilinear incision was then made in the lower uterine segment. The head was brought to the level of the incision atraumatically and delivered along the shoulders and corpus. The cord was clamped x2. The infant was brought over to the warmer with a good cry. Placenta was drained and delivered grossly intact. The uterus was cleared of all clots and debris and the uterine incision was then closed using 0 Vicryl in a running locking fashion followed. The abdomen suctioned. Surgical sites reinspected and noted be hemostatic. The retractor was then removed. The anterior peritoneum was then reapproximated with 3-0 Vicryl. The rectus muscles were reapproximated 3-0 Vicryl. The fascia was then closed using 0 Vicryl in a running nonlocking fashion. The subcutaneous tissues was then irrigated and suctioned. Subcutaneous tissue was reapproximated using 3-0 Vicryl. Several subdermal stitch is placed using 3-0 Vicryl and the skin was closed with 4-0 Monocryl and subcuticular fashion. This incision was then cleaned and dried and was dressed. The patient was then taken to recovery in stable condition. All counts were correct. The couple has decided to name the Kush . ALISON ZEPEDA MD. Jun 15, 2020 17:46
[2020-06-15] MEDS ORDERED: fentaNYL 100 MCG/2 ML INJECTION (J3010) IV PRN (18:00)
[2020-06-15] MEDS ORDERED: PERCOCET 5MG/325MG TAB PO PRN (18:00)
[2020-06-15] MEDS ORDERED: LR 1,000 ML IV SCH (18:00)
[2020-06-15] MEDS ORDERED: ceFAZolin SOD 2 GM in IV 1 EA IV ONE (19:00)
[2020-06-15] MEDS ORDERED: BICITRA 30ML SOLN UDC PO ONE (19:00)
[2020-06-15] MEDS ORDERED: fentaNYL 100 MCG/2 ML INJECTION (J3010) As Ordered ONE (19:21)
[2020-06-15] MEDS: fentaNYL 100 MCG/2 ML INJECTION (J3010) IV PRN ×3 (19:29→20:11)
[2020-06-15] MEDS: DOCUSATE SODIUM 100 MG CAP PO SCH (21:11)
[2020-06-15] MEDS: PERCOCET 5MG/325MG TAB PO PRN (21:12)
[2020-06-16] MEDS: PERCOCET 5MG/325MG TAB PO PRN ×4 (01:34→18:05)
[2020-06-16 02:00] VITALS: BP 111/57
[2020-06-16] MEDS: LR 1,000 ML IV SCH ×3 (02:38→17:00)
[2020-06-16 06:00] VITALS: BP 103/54
[2020-06-16 07:28] LABS: HEMATOCRIT 28.9 % (36.0-47.0); HEMOGLOBIN 9.2 g/dl (12.0-15.5); MEAN CORPUSCULAR HEMOGLOBIN 28.3 pg (27.0-33.0); MEAN CORPUSCULAR HGB CONC 31.8 g/dl (32.0-36.5); MEAN CORPUSCULAR VOLUME 88.9 fl (80.0-96.0); PLATELET COUNT, AUTOMATED 174 10^3/uL (150-450); RED BLOOD COUNT 3.25 10^6/uL (4.00-5.40); WHITE BLOOD COUNT 10.1 10^3/uL (4.0-10.0)
--- NOTE | 2020-06-16 08:06 | IPNPDOC ---
Progress Note Date of Service: Jun 16, 2020 Day#: 1 Progress Note SUBJECT: Doing well without complaints. Ambulating and pain is well-controlled. Reports minimal lochia. OBJECTIVE: VITAL SIGNS: Within normal limits, afebrile. Alert and oriented times three. Abdomen: Fundus firm at U-2. Soft, NTTP. Incision: dressed Ext: neg calf tenderness. ASSESSMENT: /postoperative day #1 status post delivery. Recovering in stable condition. PLAN: 1. Continue routine /postoperative care 2. Discharge plans for tomorrow VS, I&O, 24H, Fishbone Vital Signs/I&O Vital Signs Date Time Temp Pulse Resp B/P (MAP) Pulse Ox O2 Delivery O2 Flow Rate FiO2 06/16/20 06:00 97.6 62 18 103/54 (70) 97 Room Air I&O- Last 24 Hours up to 6 AM 06/16/20 06:00 Intake Total 3130 ml Output Total 3075 ml Balance 55 ml Laboratory Data 24H LABS Laboratory Tests 2 06/15/20 09:31: Serology Scanned Report Hepatitis B Testing 06/15/20 10:15: Nucleated Red Blood Cells % (auto) 0.0, Glomerular Filtration Rate > 60.0, Uric Acid 3.6, Total Bilirubin 0.2, Aspartate Amino Transf (AST/SGOT) 14, Alanine Aminotransferase (ALT/SGPT) 11L, Lactate Dehydrogenase 172 06/15/20 17:08: Cord Arterial Blood pH 7.370, Cord Arterial Blood PCO2 40.9, Cord Arterial Blood PO2 18.4, Cord Arterial Blood HCO3 23.1, Cord Arterial Blood Total CO2 24.4, Cord Arterial Blood Base Excess -2.0, Cord Arterial Base Excess (Standard 21.4, Cord Arterial Bld Oxygen Saturation 37.6, Cord Venous Blood pH 7.437, Cord Veno us Blood PCO2 35.5, Cord Venous Blood PO2 20.2, Cord Venous Blood HCO3 23.4, Cord Venous Blood Total CO2 24.5, Cord Venous Base Excess (Actual) -0.3, Cord Venous Base Excess (Standard) 23.1, Cord Venous Blood Oxygen Saturation 47.0 06/16/20 07:07: Nucleated Red Blood Cells % (auto) 0.0 CBC/BMP Laboratory Tests 06/15/20 10:15 06/16/20 07:07 HARJEET PATTERSON MD. Jun 16, 2020 08:06
[2020-06-16] MEDS: DOCUSATE SODIUM 100 MG CAP PO SCH ×2 (08:32→20:22)
[2020-06-16] MEDS: PRENATAL VITAMINS CHEWABLE TABLET PO SCH (08:32)
[2020-06-16 10:00] VITALS: BP 117/86
[2020-06-16 14:00] VITALS: BP 125/63
[2020-06-16 18:00] VITALS: BP 113/79
[2020-06-16 22:00] VITALS: BP 119/56
[2020-06-17] MEDS: PERCOCET 5MG/325MG TAB PO PRN ×2 (00:43→09:16)
[2020-06-17 02:00] VITALS: BP 122/58
[2020-06-17 06:00] VITALS: BP 116/56
[2020-06-17] MEDS ORDERED: INFLUENZA QUADRIVALENT PF VACCINE 0.5ML SYRINGE IM ONE (09:00)
[2020-06-17] MEDS: DOCUSATE SODIUM 100 MG CAP PO SCH (09:16)
[2020-06-17] MEDS: PRENATAL VITAMINS CHEWABLE TABLET PO SCH (09:16)
[2020-06-17] MEDS ORDERED: PERCOCET PO (11:07)
== END 2020-06-17 15:02 | disposition home or self-care (01) | DRG 540 ==
LOC: M LDO 07:40 → M LDI 09:21 → M OBS 20:18
PROVIDERS: ADMIT Obstetrics & Gynecology; ATTEND Obstetrics & Gynecology
PROC: 10D00Z1 Extraction of Products of Conception, Low, Open Approach (ICD-10-PCS; principal; 2020-06-15 16:30)
DX: O76 Abnormality in fetal heart rate and rhythm complicating labor and delivery (principal); Z37.0 Single live birth; Z3A.39 39 weeks gestation of pregnancy; O09.523 Supervision of elderly multigravida, third trimester

== ENCOUNTER → 2020-06-28 | Outpatient (CLI) | payer OTHER ==
[~2020-06-28] MED LIST changes: +ACET1TAB55 PO; +IRON325T2 PO; +PERCOCET PO; +PRENTAB9 PO; +TUMS500C PO; +VITATAB74 PO; +[UNRECOGNIZED DRUG - OTHER] PO
== END ==
LOC: M LABSMTC 14:03
PROVIDERS: ATTEND Family Medicine
DX: Z20.828 Contact with and (suspected) exposure to other viral communicable diseases (principal)

== ENCOUNTER → 2020-11-19 | Outpatient (REF) | payer OTHER | LOC: M LAB REF 16:23 | PROVIDERS: ATTEND Internal Medicine | DX: M25.50 Pain in unspecified joint (principal) ==

== ENCOUNTER → 2020-12-23 | Outpatient (CLI) | payer SELFPAY | LOC: M LABSMTC 14:05 | PROVIDERS: ATTEND Pediatrics | DX: Z20.822 Contact with and (suspected) exposure to COVID-19 (principal) ==

== ENCOUNTER → 2021-02-11 | Outpatient (REF) | payer OTHER ==
[2021-02-11 18:02] LABS: C REACTIVE PROTEIN QUANTITATIV 1.47 MG/DL (0.00-0.30)
[2021-02-12 14:12] LABS: RHEUMATOID FACTOR QUANT 15.7 IU/ML (<15.0)
[2021-02-14 23:08] LABS: ANTINUCLEAR ANTIBODIES DIRECT Negative (Negative); CYCLIC CITRULLINATED PEPTIDE 6 units (0-19)
== END ==
LOC: M LAB REF 16:26
PROVIDERS: ATTEND Internal Medicine
DX: M25.50 Pain in unspecified joint (principal); R79.82 Elevated C-reactive protein (CRP)

== ENCOUNTER → 2021-03-24 | Outpatient (REF) | payer OTHER ==
[2021-03-26 13:44] LABS: C REACTIVE PROTEIN QUANTITATIV 1.84 MG/DL (0.00-0.30); RHEUMATOID FACTOR QUANT 16.5 IU/ML (<15.0)
== END ==
LOC: M LAB REF 11:07
PROVIDERS: ATTEND Internal Medicine
DX: M15.9 Polyosteoarthritis, unspecified (principal)

== ENCOUNTER 2021-04-04 12:01 | Emergency (ER) | payer OTHER ==
[~2021-04-04] VITALS: Ht 162.6 cm; Wt 104.5 kg
--- NOTE | 2021-04-04 12:32 | REP ---
INDICATION: pain COMPARISON: None. TECHNIQUE: AP, lateral, bilateral oblique views left foot. FINDINGS: The osseous structures and joint spaces are intact and normal. There is no evidence for acute fracture or dislocation. Surrounding soft tissues are unremarkable. No subcutaneous emphysema or radiodense foreign body. IMPRESSION: Normal left foot radiographs. No acute fracture or dislocation. <Electronically signed by Gerardo Stack > 04/04/21 [id number]
[2021-04-04 16:15] VITALS: BP 143/81
== END 2021-04-04 16:05 | disposition home or self-care (01) ==
LOC: M ED 12:01
DX: S93.602A Unspecified sprain of left foot, initial encounter (principal); X50.9XXA Other and unspecified overexertion or strenuous movements or postures, initial encounter; Y92.018 Other place in single-family (private) house as the place of occurrence of the external cause; Z98.84 Bariatric surgery status; Z88.1 Allergy status to other antibiotic agents; Z88.2 Allergy status to sulfonamides; Z88.8 Allergy status to other drugs, medicaments and biological substances; Z91.041 Radiographic dye allergy status; Z91.048 Other nonmedicinal substance allergy status; Z79.899 Other long term (current) drug therapy

== ENCOUNTER → 2021-08-06 | Outpatient (CLI) | payer OTHER | LOC: M LABSMTC 13:25 | PROVIDERS: ATTEND Pediatrics | DX: Z01.812 Encounter for preprocedural laboratory examination (principal); Z11.52 Encounter for screening for COVID-19; U07.1 COVID-19 | CPT/HCPCS: C9803; U0003 ==

== ENCOUNTER → 2021-08-21 | Outpatient (CLI) | payer OTHER ==
[2021-08-21 12:33] LABS: BLOOD UREA NITROGEN 19 MG/DL (7-18); CARBON DIOXIDE LEVEL 27 MEQ/L (21-32); CHLORIDE LEVEL 108 MEQ/L (98-107); CREATININE FOR GFR 0.74 MG/DL (0.55-1.30); GLOMERULAR FILTRATION RATE > 60.0 (>60); GLUCOSE, FASTING 89 MG/DL (70-100); IRON (FE) 65 UG/DL (50-170); POTASSIUM SERUM 4.1 MEQ/L (3.5-5.1); SODIUM LEVEL 140 MEQ/L (136-145)
[2021-08-21 13:57] LABS: HEMATOCRIT 37.3 % (36.0-47.0); HEMOGLOBIN 11.5 g/dl (12.0-15.5); MEAN CORPUSCULAR HEMOGLOBIN 26.6 pg (27.0-33.0); MEAN CORPUSCULAR HGB CONC 30.8 g/dl (32.0-36.5); MEAN CORPUSCULAR VOLUME 86.1 fl (80.0-96.0); PLATELET COUNT, AUTOMATED 274 10^3/uL (150-450); RED BLOOD COUNT 4.33 10^6/uL (4.00-5.40); WHITE BLOOD COUNT 9.4 10^3/uL (4.0-10.0)
== END ==
LOC: M LAB 11:07
PROVIDERS: ATTEND Internal Medicine Cardiovascular Disease
DX: R00.2 Palpitations (principal); D50.9 Iron deficiency anemia, unspecified

== ENCOUNTER → 2022-02-03 | Outpatient (REF) | payer OTHER | LOC: M PLALAB 07:44 | PROVIDERS: ATTEND Advanced Practice Midwife | DX: N92.1 Excessive and frequent menstruation with irregular cycle (principal) ==

== ENCOUNTER → 2022-02-11 | Outpatient (REF) | payer OTHER ==
[2022-02-11 14:17] LABS: C REACTIVE PROTEIN QUANTITATIV 1.49 MG/DL (0.00-0.30); FOLATE 9.9 NG/ML; RHEUMATOID FACTOR QUANT 14.4 IU/ML (<15.0); TOTAL 25(OH) VITAMIN D 29.5 NG/ML (30.0-100.0)
[2022-02-13 00:12] LABS: ANTINUCLEAR ANTIBODIES DIRECT Negative (Negative); CYCLIC CITRULLINATED PEPTIDE 4 units (0-19)
== END ==
LOC: M LAB REF 12:32
PROVIDERS: ATTEND Internal Medicine
DX: Z98.84 Bariatric surgery status (principal); D50.9 Iron deficiency anemia, unspecified; M15.9 Polyosteoarthritis, unspecified

== ENCOUNTER → 2022-02-13 | Outpatient (CLI) | payer OTHER | LOC: M WHC 13:04 | PROVIDERS: ATTEND Advanced Practice Midwife | DX: N92.1 Excessive and frequent menstruation with irregular cycle (principal) ==

== ENCOUNTER → 2022-05-24 | Outpatient (CLI) | payer OTHER ==
[~2022-05-24] MED LIST changes: +DULO1CAP5 PO; +METO1TAB7 PO
== END ==
LOC: M LABSMTC 11:35
PROVIDERS: ATTEND Anesthesiology
DX: Z01.812 Encounter for preprocedural laboratory examination (principal); Z11.52 Encounter for screening for COVID-19

== ENCOUNTER 2022-05-27 08:47 | Day surgery (SDC) | payer OTHER ==
[~2022-05-27] VITALS: Ht 162.6 cm; Wt 108.0 kg
[~2022-05-27 08:47] MED LIST changes: +ceFAZolin SOD 2 GM in IV 1 EA IV ONE
[2022-05-27] MEDS ORDERED: LR 1,000 ML IV SCH ×2 (09:10→13:10)
[2022-05-27] MEDS ORDERED: PHEN-501 (09:13)
[2022-05-27] MEDS ORDERED: METOCLOPRAMIDE INJ 10MG/2ML VIAL (J2765 PER 1) As Ordered ONE (09:24)
[2022-05-27] MEDS ORDERED: HYDROmorphone HCL 2MG/ML 1ML VIAL As Ordered ONE (09:24)
[2022-05-27] MEDS ORDERED: dexameTHASONE 4 MG/ML 1ML VIAL (J1100 PER 1MG) As Ordered ONE (09:24)
[2022-05-27] MEDS ORDERED: MIDAZOLAM INJ 2MG/2ML VIAL (J2250 PER 1MG) As Ordered ONE (09:24)
[2022-05-27] MEDS ORDERED: ROCURONIUM BROMIDE 50 MG/5 ML VIAL As Ordered ONE (09:24)
[2022-05-27] MEDS ORDERED: ONDANSETRON 4MG 2ML VIAL As Ordered ONE (09:24)
[2022-05-27] MEDS ORDERED: fentaNYL 250 MCG/5 ML INJECTION As Ordered ONE (09:24)
[2022-05-27] MEDS ORDERED: KETOROLAC 60MG 2ML VIAL As Ordered ONE (09:24)
[2022-05-27] MEDS ORDERED: propofoL 200 MG/20 ML VIAL As Ordered ONE (09:24)
[2022-05-27] MEDS ORDERED: LIDOCAINE 2% 100MG/5ML SDV (FOR ANES.) As Ordered ONE (09:24)
[2022-05-27] MEDS ORDERED: SUGAMMADEX SODIUM 500 MG/5 ML VIAL (BRIDION) As Ordered ONE (09:24)
[2022-05-27] MEDS ORDERED: OXYC1TAB23 PO (09:24)
[2022-05-27 09:29] LABS: HEMATOCRIT 36.2 % (36.0-47.0); HEMOGLOBIN 11.4 g/dl (12.0-15.5); MEAN CORPUSCULAR HEMOGLOBIN 26.6 pg (27.0-33.0); MEAN CORPUSCULAR HGB CONC 31.5 g/dl (32.0-36.5); MEAN CORPUSCULAR VOLUME 84.4 fl (80.0-96.0); PLATELET COUNT, AUTOMATED 241 10^3/uL (150-450); RED BLOOD COUNT 4.29 10^6/uL (4.00-5.40); WHITE BLOOD COUNT 9.5 10^3/uL (4.0-10.0)
[2022-05-27] MEDS ORDERED: VITMTA PO (10:23)
[2022-05-27] MEDS ORDERED: HOME MED LIST COMPLETE! XX SCH (10:30)
[2022-05-27] MEDS ORDERED: BUPIVACAINE HCL 0.25% 30ML VIAL As Ordered ONE (10:37)
[2022-05-27] MEDS ORDERED: ACETAMINOPHEN 1000MG 100ML IV BTL (OFIRMEV) (J0131 PER 10MG) As Ordered ONE (11:19)
[2022-05-27] MEDS ORDERED: ePHEDrine SULFATE 25 MG/5 ML(5MG/ML) SYRINGE As Ordered ONE (11:28)
[2022-05-27] MEDS ORDERED: oxyCODONE 5MG TAB PO PRN (13:10)
[2022-05-27] MEDS ORDERED: ONDANSETRON 4MG 2ML VIAL IV PRN (13:10)
[2022-05-27] MEDS ORDERED: MORPHINE 2 MG/ML 1ML VIAL IV PRN (13:10)
[2022-05-27] MEDS ORDERED: fentaNYL 100 MCG/2 ML INJECTION IV PRN (13:10)
[2022-05-27] MEDS ORDERED: ALBUTEROL 6.7GM INHALER **FOR ANES. CART/OMNICELL ONLY As Ordered ONE (13:21)
[2022-05-27] MEDS ORDERED: PERCOCET 5MG/325MG TAB PO PRN (14:10)
[2022-05-27 17:45] VITALS: BP 143/93
== END 2022-05-27 17:50 | disposition home or self-care (01) ==
LOC: M SDC 08:47
PROVIDERS: ATTEND Obstetrics & Gynecology
DX: D25.9 Leiomyoma of uterus, unspecified (principal); R10.2 Pelvic and perineal pain; D64.9 Anemia, unspecified; F32.A Depression, unspecified; G47.30 Sleep apnea, unspecified; Z91.041 Radiographic dye allergy status; Z88.8 Allergy status to other drugs, medicaments and biological substances; Z88.1 Allergy status to other antibiotic agents; Z88.2 Allergy status to sulfonamides; Z79.899 Other long term (current) drug therapy
CPT/HCPCS: 36415; 58573; 81025; 85027; 86850; 86900; 86901; 88307; J0131; J0690; J1100; J1170; J2250; J2405; J2765; J3010; S2900

== ENCOUNTER → 2022-08-19 | Outpatient (REF) | payer OTHER ==
[~2022-08-19] MED LIST changes: +OXYC1TAB23 PO; +PHEN-501; +VITMTA PO; -ceFAZolin SOD 2 GM in IV 1 EA IV ONE
[2022-08-19 17:19] LABS: FERRITIN 29.6 NG/ML (7.3-270.7)
[2022-08-20 08:23] LABS: FOLLICLE STIMULATING HORMONE 2.7 mIU/ML
[2022-08-20 08:24] LABS: LUTEINIZING HORMONE 6.1 mIU/ML
== END ==
LOC: M LAB REF 16:16
PROVIDERS: ATTEND Internal Medicine
DX: D50.9 Iron deficiency anemia, unspecified (principal); Z98.84 Bariatric surgery status; N95.1 Menopausal and female climacteric states

== ENCOUNTER → 2022-12-17 | Outpatient (REF) | payer OTHER ==
[2022-12-18 06:09] LABS: HSV TYPE I IgG SPECIFIC <0.91 index (0.00-0.90); HSV TYPE II IgG SPECIFIC <0.91 index (0.00-0.90)
== END ==
LOC: M SFHCRHEU 10:33
PROVIDERS: ATTEND Internal Medicine
DX: M25.50 Pain in unspecified joint (principal); K12.1 Other forms of stomatitis

== ENCOUNTER → 2022-12-17 | Outpatient (CLI) | payer OTHER | LOC: M RAD 11:19 → M LAB 11:19 | PROVIDERS: ATTEND Internal Medicine | DX: M25.50 Pain in unspecified joint (principal); M77.52 Other enthesopathy of left foot and ankle ==

== ENCOUNTER → 2023-04-08 | Outpatient (REF) | payer OTHER ==
[2023-04-08 17:12] LABS: C REACTIVE PROTEIN QUANTITATIV 3.1 MG/DL (<1.0)
[2023-04-08 17:13] LABS: FERRITIN 28.1 NG/ML (7.3-270.7); TOTAL 25(OH) VITAMIN D 19.9 NG/ML (20.0-100.0)
[2023-04-08 17:14] LABS: FOLATE 12.8 NG/ML (>5.4)
== END ==
LOC: M LAB REF 16:07
PROVIDERS: ATTEND Internal Medicine
DX: Z98.84 Bariatric surgery status (principal); M06.4 Inflammatory polyarthropathy

== ENCOUNTER → 2024-03-30 | Outpatient (REF) | payer OTHER | LOC: M LAB REF 16:25 | PROVIDERS: ATTEND Internal Medicine | DX: M06.4 Inflammatory polyarthropathy (principal) ==

== ENCOUNTER → 2024-07-07 | Outpatient (REF) | payer OTHER ==
[2024-07-07 14:18] LABS: APPEARANCE, URINE CLOUDY (CLEAR); BACTERIA, URINE AUTO NEGATIVE (NEGATIVE); BILIRUBIN, URINE AUTO NEGATIVE (NEGATIVE); BLOOD, URINE BLOOD 3+ (NEGATIVE); COLOR, URINE YELLOW (YELLOW); GLUCOSE, URINE (UA) AUTO NEGATIVE (NEGATIVE); KETONE, URINE AUTO NEGATIVE (NEGATIVE); LEUKOCYTE ESTERASE, URINE AUTO 3+ (NEGATIVE); MUCUS, URINE SMALL (NEGATIVE); NITRITE, URINE AUTO NEGATIVE (NEGATIVE); PROTEIN, URINE AUTO 2+ mg/dL (NEGATIVE); RBC, URINE AUTO TNTC /HPF (0-3); SPECIFIC GRAVITY URINE AUTO 1.024 (1.002-1.035); SQUAMOUS EPITHELIAL CELL UR AU 2 /HPF (0-6); UROBILINOGEN, URINE AUTO 0.2 mg/dL (0.0-2.0); WBC, URINE AUTO TNTC /HPF (0-3)
== END ==
LOC: M LAB REF 13:55
PROVIDERS: ATTEND Physician Assistant Medical
DX: N39.0 Urinary tract infection, site not specified (principal)

== ENCOUNTER → 2024-07-26 | Outpatient (REF) | payer OTHER | LOC: M LAB REF 13:23 | PROVIDERS: ATTEND Internal Medicine | DX: R79.82 Elevated C-reactive protein (CRP) (principal) ==

== ENCOUNTER → 2024-10-23 | Outpatient (REF) | payer OTHER ==
[2024-10-23 14:06] LABS: FERRITIN 30.5 NG/ML (7.3-270.7)
[2024-10-23 14:07] LABS: FOLLICLE STIMULATING HORMONE 2.3 mIU/ML; LUTEINIZING HORMONE 3.3 mIU/ML
[2024-10-23 14:08] LABS: VITAMIN B12 LEVEL 410 PG/ML (211-911)
[2024-10-23 14:09] LABS: FOLATE > 24.0 NG/ML (>5.4)
== END ==
LOC: M LAB REF 12:58
PROVIDERS: ATTEND Internal Medicine
DX: Z98.84 Bariatric surgery status (principal); M06.4 Inflammatory polyarthropathy; N92.0 Excessive and frequent menstruation with regular cycle

== ENCOUNTER → 2025-07-09 | Outpatient (CLI) | payer OTHER ==
[2025-07-09 09:24] LABS: PLATELET COUNT, AUTOMATED 285 10^3/uL (150-450)
[2025-07-09 09:39] LABS: ESTIMATED AVERAGE GLUCOSE 117.0 MG/DL (60-110)
[2025-07-09 09:56] LABS: ALT/SGPT 19 U/L (7.0-40); AST/SGOT 17 U/L (<34); CALCIUM LEVEL 8.5 MG/DL (8.5-10.1); CARBON DIOXIDE LEVEL 28 MMOL/L (20-31); CHLORIDE LEVEL 103 MMOL/L (98-107); CHOLESTEROL LEVEL 241 MG/DL (<200); CHOLESTEROL RISK RATIO 5.05 (<5); CREATININE FOR GFR 0.77 MG/DL (0.55-1.30); GLOMERULAR FILTRATION RATE > 90.0 (>58); LDL CHOLESTEROL 148.7 MG/DL (<100); NON-HDL-C 193.3 MG/DL; POTASSIUM SERUM 4.5 MMOL/L (3.5-5.1); SODIUM LEVEL 140 MMOL/L (136-145); THYROXINE (T4) 7.2 UG/DL (4.5-10.9); TRIGLYCERIDES LEVEL 223 MG/DL (<150)
[2025-07-09 09:58] LABS: TOTAL T3 157.9 NG/DL (60.0-181.0)
== END ==
LOC: M LAB 08:20
PROVIDERS: ATTEND Physician Assistant
DX: E66.3 Overweight (principal)